=== PATIENT | female | born 1995 | race Caucasian/White ===

== ENCOUNTER 2018-11-03 18:12 | Emergency (ER) | payer OTHER ==
[2018-11-03 19:39] LABS: ABS Basophils 0.1 10^3/ul (0-0.2); ABS Eosinophils 0.1 10^3/ul (0-0.6); ABS Lymphocytes 3.1 10^3/ul (1.0-4.8); ABS Monocytes 0.5 10^3/ul (0-0.8); ABS Neutrophils 3.2 10^3/ul (1.5-7.7); Eosinophil % 1.8 %; Hematocrit 38 % (35-47); Hemoglobin 13.1 g/dL (12.0-16.0); Lymphocyte % 44.8 %; Mean Corpuscular HGB Conc 35 g/dL (31-36); Mean Corpuscular Hemoglobin 32 pg (27-31); Mean Corpuscular Volume 93 fL (80-97); Mean Platelet Volume 8.9 fL (7.4-10.4); Platelet Count 192 10^3/uL (150-450); Red Blood Count 4.06 10^6 /uL (3.70-4.87); Red Cell Distribution Width 13 % (10-15); White Blood Count 6.9 10^3/uL (3.5-10.8)
[2018-11-03 19:57] LABS: ALT 14 U/L (7-52); AST 21 U/L (13-39); Albumin 4.4 g/dL (3.2-5.2); Albumin/Globulin Ratio 1.8 (1-3); Alkaline Phosphatase 39 U/L (34-104); Amylase 51 U/L (29-103); Anion Gap 4 mmol/L (2-11); BUN/Creatinine Ratio 10.8 (8-20); Blood Urea Nitrogen 9 mg/dL (6-24); C Reactive Protein 28.12 mg/L (<8.01); CO2 Carbon Dioxide 27 mmol/L (22-32); Calcium 9.1 mg/dL (8.6-10.3); Chloride 104 mmol/L (101-111); EGFR Non-African American 86.8 (>60); Globulin 2.5 g/dL (2-4); Glucose 90 mg/dL (70-100); Potassium 3.7 mmol/L (3.5-5.0); Sodium 135 mmol/L (135-145); Total Protein 6.9 g/dL (6.4-8.9)
[2018-11-03 20:03] LABS: HCG Pregnancy < 0.60 mIU/mL
[2018-11-03] MEDS ORDERED: NS 0.9% 1000 ML** 1,000 ML IV ONE (20:21)
[2018-11-03] MEDS ORDERED: Ketorolac INJ* 30 MG/ML 1 ML VIAL IV PUSH ONE (20:21)
[2018-11-03] MEDS ORDERED: Ketorolac INJ* 15 MG/ML 1 ML VIAL ONE (20:55)
[2018-11-03 21:56] LABS: Urine Appearance Clear; Urine Bacteria Absent (Absent); Urine Bilirubin Negative (Negative); Urine Blood 3+ (Negative); Urine Color Yellow; Urine Glucose Negative (Negative); Urine Ketones Trace (Negative); Urine Nitrite Negative (Negative); Urine Protein Negative (Negative); Urine Red Blood Cell Trace(0-2/hpf) (Absent); Urine Specific Gravity 1.011 (1.010-1.030); Urine Squamous Epithelial Cell Present (Absent); Urine Urobilinogen Negative (Negative); Urine White Blood Cell Trace(0-5/hpf) (Absent)
--- NOTE | 2018-11-03 22:14 | ED ---
GI/ HPI - HPI Summary HPI Summary: 23-year-old female presents with right lower quadrant pain for the past 3 days. She states the pain has been intermittent but is becoming more intense. She notes nausea and vomiting. Also admits to diarrhea. Denies any urinary symptoms. No abnormal vaginal discharge. She took some Zofran earlier for her symptoms and is feeling better. She states the pain also radiates up to her right upper quadrant. - History of Current Complaint Chief Complaint: EDAbdPain Time Seen by Provider: 11/03/18 20:14 Stated Complaint: SENT FOR CT SCAN PER PT Pain Intensity: 7 - Allergy/Home Medications Allergies/Adverse Reactions: Allergies Allergy/AdvReac Type Severity Reaction Status Date / Time No Known Allergies Allergy Verified 11/03/18 18:17 Home Medications: Home Medications Control 1 tab PO DAILY 11/03/18 [History Confirmed 11/03/18] PMH/Surg Hx/FS Hx/Imm Hx Endocrine/Hematology History: Denies: Hx Anticoagulant Therapy Respiratory History: Denies: Hx Asthma - Immunization History Immunizations Up to Date: Yes Infectious Disease History: No Infectious Disease History: Denies: Traveled Outside the [place] in Last 30 Days - Family History Known Family History: Positive: Non-Contributory - Social History Alcohol Use: None Substance Use Type: Reports: None Smoking Status (MU): Never Smoked Tobacco Review of Systems Positive: Fever Negative: Chest Pain Negative: Shortness Of Breath Positive: Abdominal Pain, Vomiting, Nausea All Other Systems Reviewed And Are Negative: Yes Physical Exam Triage Information Reviewed: Yes Vital Signs On Initial Exam: Initial Vitals Temp Pulse Resp BP Pulse Ox 99.4 F 74 18 122/79 99 11/03/18 18:15 11/03/18 18:15 11/03/18 18:15 11/03/18 18:15 11/03/18 18:15 Vital Signs Reviewed: Yes Appearance: Positive: Well-Appearing Skin: Positive: Warm, Dry Head/Face: Positive: Normal Head/Face Inspection Eyes: Positive: Normal, EOMI, YANICK, Conjunctiva Clear ENT: Positive: Normal ENT inspection, Pharynx normal, TMs normal Respiratory/Lung Sounds: Positive: Clear to Auscultation, Breath Sounds Present Cardiovascular: Positive: Normal, RRR Abdomen Description: Positive: Soft, Other: - tenderness in RLQ Bowel Sounds: Positive: Present Musculoskeletal: Positive: Normal Neurological: Positive: Normal Psychiatric: Positive: Normal Diagnostics - Vital Signs Vital Signs Temp Pulse Resp BP Pulse Ox 11/03/18 21:03 68 128/91 100 11/03/18 21:00 56 100 11/03/18 20:32 62 100 11/03/18 18:15 99.4 F 74 18 122/79 99 - Laboratory Lab Results: Lab Results 11/03/18 11/03/18 11/03/18 Range/Units 19:32 19:32 19:32 WBC 6.9 (3.5-10.8) 10^3/uL RBC 4.06 (3.70-4.87) 10^6 /uL Hgb 13.1 (12.0-16.0) g/dL Hct 38 (35-47) % MCV 93 (80-97) fL MCH 32 H (27-31) pg MCHC 35 (31-36) g/dL RDW 13 (10-15) % Plt Count 192 (150-450) 10^3/uL MPV 8.9 (7.4-10.4) fL Neut % (Auto) 45.7 % Lymph % (Auto) 44.8 % [place] % (Auto) 7.0 % Eos % (Auto) 1.8 % Baso % (Auto) 0.7 % Absolute Neuts (auto) 3.2 (1.5-7.7) 10^3/ul Absolute Lymphs (auto) 3.1 (1.0-4.8) 10^3/ul Absolute Monos (auto) 0.5 (0-0.8) 10^3/ul Absolute Eos (auto) 0.1 (0-0.6) 10^3/ul Absolute Basos (auto) 0.1 (0-0.2) 10^3/ul Absolute Nucleated RBC 0.0 10^3/ul Nucleated RBC % 0.0 Sodium 135 (135-145) mmol/L Potassium 3.7 (3.5-5.0) mmol/L Chloride 104 (101-111) mmol/L Carbon Dioxide 27 (22-32) mmol/L Anion Gap 4 (2-11) mmol/L BUN 9 (6-24) mg/dL Creatinine 0.83 (0.51-0.95) mg/dL Est GFR ( Amer) 105.0 (>60) Est GFR (Non-Af Amer) 86.8 (>60) BUN/Creatinine Ratio 10.8 (8-20) Glucose 90 (70-100) mg/dL Lactic Acid 0.7 (0.5-2.0) mmol/L Calcium 9.1 (8.6-10.3) mg/dL Total Bilirubin 0.70 (0.2-1.0) mg/dL AST 21 (13-39) U/L ALT 14 (7-52) U/L Alkaline Phosphatase 39 (34-104) U/L C-Reactive Protein 28.12 H (<8.01) mg/L Total Protein 6.9 (6.4-8.9) g/dL Albumin 4.4 (3.2-5.2) g/dL Globulin 2.5 (2-4) g/dL Albumin/Globulin Ratio 1.8 (1-3) Amylase 51 (29-103) U/L Lipase 37 (11.0-82.0) U/L Beta HCG, Quant < 0.60 mIU/mL Urine Color Urine Appearance Urine pH (5-9) Ur Specific [place] (1.010-1.030) Urine Protein (Negative) Urine Ketones (Negative) Urine Blood (Negative) Urine Nitrate (Negative) Urine Bilirubin (Negative) Urine Urobilinogen (Negative) Ur Leukocyte Esterase (Negative) Urine WBC (Auto) (Absent) Urine RBC (Auto) (Absent) Ur Squamous Epith Cells (Absent) Urine Bacteria (Absent) Urine Glucose (Negative) 11/03/18 Range/Units 21:43 WBC (3.5-10.8) 10^3/uL RBC (3.70-4.87) 10^6 /uL Hgb (12.0-16.0) g/dL Hct (35-47) % MCV (80-97) fL MCH (27-31) pg MCHC (31-36) g/dL RDW (10-15) % Plt Count (150-450) 10^3/uL MPV (7.4-10.4) fL Neut % (Auto) % Lymph % (Auto) % [place] % (Auto) % Eos % (Auto) % Baso % (Auto) % Absolute Neuts (auto) (1.5-7.7) 10^3/ul Absolute Lymphs (auto) (1.0-4.8) 10^3/ul Absolute Monos (auto) (0-0.8) 10^3/ul Absolute Eos (auto) (0-0.6) 10^3/ul Absolute Basos (auto) (0-0.2) 10^3/ul Absolute Nucleated RBC 10^3/ul Nucleated RBC % Sodium (135-145) mmol/L Potassium (3.5-5.0) mmol/L Chloride (101-111) mmol/L Carbon Dioxide (22-32) mmol/L Anion Gap (2-11) mmol/L BUN (6-24) mg/dL Creatinine (0.51-0.95) mg/dL Est GFR ( Amer) (>60) Est GFR (Non-Af Amer) (>60) BUN/Creatinine Ratio (8-20) Glucose (70-100) mg/dL Lactic Acid (0.5-2.0) mmol/L Calcium (8.6-10.3) mg/dL Total Bilirubin (0.2-1.0) mg/dL AST (13-39) U/L ALT (7-52) U/L Alkaline Phosphatase (34-104) U/L C-Reactive Protein (<8.01) mg/L Total Protein (6.4-8.9) g/dL Albumin (3.2-5.2) g/dL Globulin (2-4) g/dL Albumin/Globulin Ratio (1-3) Amylase (29-103) U/L Lipase (11.0-82.0) U/L Beta HCG, Quant mIU/mL Urine Color Yellow Urine Appearance Clear Urine pH 6.0 (5-9) Ur Specific [place] 1.011 (1.010-1.030) Urine Protein Negative (Negative) Urine Ketones Trace A (Negative) Urine Blood 3+ A (Negative) Urine Nitrate Negative (Negative) Urine Bilirubin Negative (Negative) Urine Urobilinogen Negative (Negative) Ur Leukocyte Esterase Negative (Negative) Urine WBC (Auto) Trace(0-5/hpf) (Absent) Urine RBC (Auto) Trace(0-2/hpf) (Absent) Ur Squamous Epith Cells Present A (Absent) Urine Bacteria Absent (Absent) Urine Glucose Negative (Negative) Result Diagrams: 11/03/18 19:32 11/03/18 19:32 Lab Statement: Any lab studies that have been ordered have been reviewed, and results considered in the medical decision making process. - Ultrasound No standard instances Ultrasound Interpretation Completed By: Radiologist Summary of Ultrasound Findings: IMPRESSION: 1. Bilateral ovarian cysts, largest on the left as detailed above. 2. Moderate pelvic free fluid, located in the rectouterine cul-de-sac, left adnexa, and adjacent to uterine fundus. Re-Evaluation - Re-Evaluation First Eval Change: Improved Comment: feeling better, pain still to palpation of RLQ Second Eval Re-Evaluation Time: 02:37 Change: Improved Comment: feeling better GIGU Course/Dx - Course Course Of Treatment: 23-year-old female presents with right lower quadrant pain for the past 3 days. She states the pain has been intermittent but is becoming more intense. She notes nausea and vomiting. Also admits to diarrhea. Denies any urinary symptoms. No abnormal vaginal discharge. She took some Zofran earlier for her symptoms and is feeling better. She states the pain also radiates up to her right upper quadrant. On exam tenderness greatest in right lower quadrant. Negative Rovsing's. wbc normal. CRP elevated. appendix ultrasound does not show appendix. Transvaginal ultrasound shows bilateral ovarian cyst. with consistent pain in the right lower quadrant we'll get a CT. patient signed out to dr moreno pending CT for dispo - Diagnoses Differential Diagnoses - Female: Appendicitis, Gastroenteritis (Viral), Ovarian Cyst, Urinary Tract Infection Provider Diagnoses: Abdominal pain Discharge ED - Sign-Out/Discharge Documenting (check all that apply): Sign-Out Patient Signing out patient TO: Uyen Moreno - Discharge Plan Referrals: [facility] - Melecio VIEIRA [Primary Care Provider] -
[2018-11-04] MEDS ORDERED: Iohexol 300* (CONTRAST) 10 ML SDV IV ONE (00:18)
--- NOTE | 2018-11-04 02:40 | ED ---
Progress - Progress Note Progress Note: This pt was signed out from SANCHEZ Martínez, to Dr. Moreno on 11/04/[address] abdomen/pelvis. CT abdomen/pelvis, as read by radiologist IMPRESSION: No acute findings. Dr. Moreno has reviewed this report. Re-Evaluation - Re-Evaluation First Eval Re-Evaluation Time: 04:18 Change: Improved Comment: I have discussed results with the patient and abd pain has improved. Discussed symptoms that warrant immediate return to the ED. Course/Dx - Course Course Of Treatment: This pt was signed out by SANCHEZ Martínez, pending abdomen/ pelvis CT for right lower quadrant x3. CT shows no acute findings. Discussed results with patient. She will be discharged home with follow up from her PCP in 3 days. Pt was given instructions to return to the ED for any worsening or new symptoms. - Diagnoses Provider Diagnoses: Abdominal pain Discharge ED - Sign-Out/Discharge Documenting (check all that apply): Patient Departure - Discharge home, Receiving Sign-Out Receiving patient FROM: Terra Harrell Patient Received Moderate/Deep Sedation with Procedure: No - Discharge Plan Condition: Stable Disposition: HOME Patient Education Materials: Abdominal Pain (ED) Referrals: [facility] - [place] [Primary Care Provider] - Additional Instructions: Please follow up with your primary care provider within three days. Please return to the ED for any new or worsening symptoms. - Billing Disposition and Condition Condition: STABLE Disposition: Home - Attestation Statements Document Initiated by Xiangibe: Yes Documenting Scribe: Pina Peraza Provider For Whom Xiangibe is Documenting (Include Credential): Dr. Uyen Moreno MD Scribe Attestation: Pina Mg scribed for Dr. Uyen Moreno MD on 11/04/18 at 0517. Scribe Documentation Reviewed: Yes Provider Attestation: The documentation as recorded by the Pina beal accurately reflects the service I personally performed and the decisions made by me, Dr. Uyen Moreno MD Status of Scribe Document: Viewed
[2018-11-04 04:34] VITALS: BP 108/71
== END 2018-11-04 04:35 | disposition home or self-care (01) ==
LOC: ED 18:12
DX: R10.9 Unspecified abdominal pain (principal); N83.201 Unspecified ovarian cyst, right side; N83.202 Unspecified ovarian cyst, left side
CPT/HCPCS: 36415; 74177; 76705; 76830; 80053; 81003; 81015; 82150; 83605; 83690; 84702; 85025; 86140; 87086; 96361; 96374; 99284; J1885; Q9967